=== PATIENT | female | born 1950 | race Caucasian/White ===

== ENCOUNTER → 2022-05-15 | Outpatient (CLI) | payer MEDICARE ==
[2022-05-15 09:18] VITALS: BP 91/62; PULSE 84; RESP 18; TEMP 98.2
--- NOTE | 2022-05-15 09:21 | P.PAINPG ---
PQRS Measure Charge Sheet Comment: HISTORY OF PRESENT ILLNESS: 72 yr old female as a referral from [facility] presents today with severe and chronic LBP secondary to DDD, L5-S1 spondylolisthesis and facet arthropathy for an evaluation. Pt states her pain level is approximately 0/10 in intensity but escalates as high as 8/10 in intensity with standing/walking for 5 min or more or other weight bearing activity. Pain is intermittent, tight in character in the mid to lower aspects of her lumbar spine which has been worsening for the last year. Pain radiates left or right of midline to the paraspinal muscles and denies radiation of pain to the lower extremities. Pain is relieved with medications (Neurontin, Tylenol OTC, Advil OTC), topicals, LESIs the past, physical therapy in February 2021 for 4-5 weeks patient provided no relief, use of a cane and walker for ambulation, sitting and laying supine. PMH: OA, HTN, NIDDM Type II, MDD/ Anxiety PSH: Cholecystectomy, BL Cataract Resection, BL Feet Surgery, Bladder Suspension SH: No tobacco use, Occasional ETOH use, No illicit drug use. Grandmother to twins. FH: Non contributory All: NKDA Meds: See list REVIEW OF ORGAN SYSTEMS: CONSTITUTIONAL: No fevers or chills. No recent weight loss. NEUROLOGICAL: + numbness and tingling along the distal extremities. No seizure disorders or headaches. MUSCULOSKELETAL: + pain PSYCHIATRIC: Denies current depression or suicidal thoughts. Physical Examinations : Constitutional : Cooperative , not in acute distress . Neurologic : Cranial nerve II to XII intact. No focal neurological deficits. Psychiatric : alert & oriented x 3. Matching mood & appropriate affect. Judgment & insight intact. Musculoskeletal : Cervical Spine Motor strength in the deltoid and biceps: Normal right side. Normal Left side Motor strength biceps and the wrist extensors: Normal right side . Normal left side Motor strength in the triceps muscle: Normal right side. Normal left side Deep tendon reflexes: Normal at the biceps. Normal at Brachioradialis. Normal at triceps Vertebral body tenderness to deep palpation over Cervical facet loading test: positive bilaterally Spurling test: positive bilaterally Neck distraction test: positive bilaterally Jae sign: positive bilaterally Lumbar spine Motor strength lower extremities ,thigh and legs 5/5 Right side , 5/5 Left side Deep tendon reflexes : Normal Knee Jerk. Normal Ankle Jerk Vertebral body tenderness over L4, L5 w paraspinal TTP Lumbar facet Loading Test: positive Right / positive Left Range of motion of the lumbar spine Flexion 30 degrees, extension 10 degrees Straight Leg Raise test: Left/ Right positive at degree Nicole test: positive right / positive left. Severe tenderness over the Sacroiliac joint on the Right / Left sides Gaenslen test: positive bilaterally Seated flexion test: positive bilaterally. Sacral spine : Severe tenderness over the Sacroiliac joint: right side / left side Range of motion: Flexion of the lumbar spine <60 degrees Range of motion: Extension of the lumbar spine <20 degrees Gaenslen's Test positive Manan's Test positive Nicole test: positive right side / left side Thigh Thrust Test Sacral Thrust Test Imaging: MRI without contrast of the lumbar spine from 04/03/22 reviewed Assessment/ Plan : Lumbar DDD, lumbar spondylolisthesis Recommendation of FERNANDA L4-L5. May need a series of injections, up to 3 within a 6 mo period, for optimal pain relief. Risks, benefits of procedure discussed and patient verbalized understanding. Admits to aspirin or anti- coagulant use or medical history of diabetes. Protocol for discontinuation/ continuation of medications rolando procedure discussed. All questions answered. I have spent greater than 30 minutes on patient care today. Dr Wilkins was available by phone for the evaluation of this patient. The time was used to review the medical records including relevant urine studies and Prescription history (MAPs), review of the available imaging, evaluation and examination of the patient, coordination of care with the medical staff and if applicable referring physicians, as well as creation of the medical record Controlled Substance Measures - Controlled Substance Measures Is patient prescribed a controlled substance at discharge?: No
== END | disposition home or self-care (01) ==
LOC: PNWHC3 08:27
PROVIDERS: ATTEND Specialist
DX: M43.16 Spondylolisthesis, lumbar region (principal); M51.36 Other intervertebral disc degeneration, lumbar region
CPT/HCPCS: 99211

== ENCOUNTER 2022-06-25 08:09 | Day surgery (SDC) | payer MEDICARE ==
[2022-06-24 10:06] VITALS: BMI 29.6
[~2022-06-25 08:09] MED LIST: LACTATED RINGERS 1,000 ML IV SCH
[2022-06-25 08:49] LABS: Glucose,Whole Blood 127 mg/dL (70-110)
[2022-06-25] MEDS ORDERED: methylPREDNISolone ACETATE 40 MG/ML 1 ML VIAL ONE (08:51)
[2022-06-25] MEDS ORDERED: IOPAMIDOL M200 10 ML VIAL ONE (08:51)
[2022-06-25 08:54] VITALS: RESP 16
--- NOTE | 2022-06-25 09:02 | P.PCN ---
Date of Procedure: 06/25/22 Procedure(s) Performed: L4-L5 epidural steroid injection Description of Procedure: PREOPERATIVE DIAGNOSIS: lumbar radiculopathy POSTOPERATIVE DIAGNOSIS: Lumbar radiculopathy PROCEDURE 1. Lumbar epidural steroid injection under fluoroscopic guidance at the L4-L5 level. 2. Lumbar epidurogram. Imaging: Fluoroscopy was used, images where saved to the medical record ANESTHESIA: Medication Administered by: None Sedation Type: Local only Sedation Supervision start time: Sedation Supervision end time: EBL: Minimal PROCEDURE INDICATION: The patient with low back pain and radiculitis symptoms unresponsive to conservative treatment. Fluoroscopy was used to optimize visualization of the needle placement and to maximize safety. PROCEDURE DESCRIPTION / TECHNIQUE: The patient was seen and identified in the preoperative area. Risks, benefits, complications including but not limited to infections ,bleeding ,allergic reacti on to the medications, nerve damage and incomplete pain relief , as well as alternatives to the procedure were discussed with the patient. The patient agreed to proceed with the procedure and signed the consent. IV was started, and vital signs were stable. Patient was taken to the OR and time out was completed. The patient was placed in the prone position on procedure table and a pillow was placed under the abdomen to reduce lumbar lordosis. The lumbosacral area was prepped and draped in the usual sterile fashion. Vitals were closely monitored during the procedure. Using anterior-posterior fluoroscopy, the L4-L5 interlaminar space was identified and the skin over this site was marked and then infiltrated with 1% lidocaine subcutaneously. Subsequently, a 20-gauge Tuohy epidural needle was inserted and advanced toward the epidural space using the Loss of resistance technique and guided by AP and lateral fluoroscopy. The correct needle position in the epidural space was verified with the injection of 1 mL of Omnipaque 180 contrast to observe an acceptable epidurogram, after negative aspiration for blood and CSF and in the absence of paresthesias. Again after negative aspiration, a 3 ml mixture containing 40mg of depomedrol and 2 ml of preservative free Normal Saline was injected and a washout of epidurogram was seen. Needle was withdrawn intact, skin was cleansed, and bandages were applied. COMPLICATIONS: None DISPOSITION / PLANS: The patient was placed in a supine position and transferred to the recovery area in a stable condition for observation. There was no evidence of lower extremity motor or sensory deficit after the procedure. Patient was discharged from the recovery room after meeting discharge criteria. Home discharge instructions were given to the patient by the staff. The patient was reexamined prior to discharge. The patient will follow up as directed.
--- NOTE | 2022-06-25 09:20 | FL ---
EXAMINATION TYPE: FL guided pain mgmt statistic DATE OF EXAM: 06/25/2022 HISTORY: Fluoroscopy time 6 seconds of fluoroscopy provided. IMPRESSION: 1. Fluoroscopy time.
[2022-06-25 09:33] VITALS: BP 111/68; PULSE 62
== END 2022-06-25 09:47 | disposition home or self-care (01) ==
LOC: ORPAIN 08:09
PROVIDERS: ATTEND Hospitalist
DX: M54.16 Radiculopathy, lumbar region (principal); Z88.1 Allergy status to other antibiotic agents
CPT/HCPCS: 62323; J1030; Q9966

== ENCOUNTER → 2022-07-17 | Outpatient (CLI) | payer MEDICARE ==
[2022-07-17 08:18] VITALS: BP 98/64; PULSE 75; RESP 18; TEMP 98.4
--- NOTE | 2022-07-17 15:01 | P.PAINPG ---
PQRS Measure Charge Sheet Comment: A 72 yr old female with a history of severe and chronic low back pain secondary to lumbar degenerative disc diseases and lumbar spondylosis with facet arthropathy presents today for evaluation s/p RAFAEL L4-L5. Pt states she experienced 50% pain relief x 2 wks s/p procedure. Pain level is currently at 5/10 in intensity, constant, spasm in character w shooting towards the hips BL. Pain is provoked by standing/ walking, otherwise it is a 0/10 in intensity. Pain is alleviated with PT x 4 wks in Nov 2021, medications (Ibuprofen), capsacin topical, use of a walker for ambulation, sitting, repositioning and rest. Interventional pain procedures completed include RAFAEL L4-L5 Patient is currently on Ibuprofen prn Patient denies any side effects of the medication(s), denies excessive drowsiness or sleepiness, denies suicidal ideation and reports that the current pain medication is helping to control the pain and improve activities of daily living. Patient denies any motor or sensory deficits. Patient denies any fever or night sweats, denies any change in the bowel movements or urination. Physical Examination: -Constitutional: Cooperative. Not in acute distress . - Neurologic: Cranial nerve II to XII intact. No focal neurological deficits. - Psychatric: Alert & oriented x 3. Matching mood & appropriate affect. Judgment and insight intact. - Musculoskeletal: Cervical spine: Muscle bulk/ tone/ strength in the bilateral upper extremities normal Vertebral body tenderness to palpation over Spurling test positive Distraction test positive Facet loading test positive Thoracic spine Muscle bulk / tone/ strength in the bilateral paraspinal muscles normal Vertebral body tender to palpation over Facet loading test positive Lumbar spine: Motor bulk/ tone/ strength lower extremities , thigh and legs : 5/5 Deep tendon reflexes : Normal Knee Jerk. Normal Ankle Jerk . Vertebral body tenderness to palpation over L5 Lumbar Facet Loading Test positive Straight Leg Raise: positive at 30 degrees right side/ left side Gaenslen's Test positive Sacral spine : Severe tenderness over the Sacroiliac joint: right side / left side Range of motion: Flexion of the lumbar spine <60 degrees Range of motion: Extension of the lumbar spine <20 degrees Gaenslen's Test positive Manan's Test positive Nicole test: positive right side / left side Thigh Thrust Test Sacral Thrust Test Assessment and plan: Chronic low back pain secondary to lumbar degenerative disc disease , lumbar spondylosis with facet arthropathy without myelopathy Recommendation of RAFAEL L5-S1. May need a series of injections, up to 3 within a 6 mo period, for optimal pain relief. Risks, benefits of procedure discussed and pt verbalized understanding. Denies anticoagulant use or medical history of diabetes. All patient questions answered MAPS reviewed and it was appropriate. I have spent less than 30 minutes on patient care today. Dr Wilkins was available by phone for the evaluation of this patient. The time was used to review the medical records including relevant urine studies and Prescription history (MAPs), review of the available imaging, evaluation and examination of the patient, coordination of care with the medical staff and if applicable referring physicians, as well as creation of the medical record PQRS Narrative: Hx Alcohol Use (MH) Yes: SOCIAL Home Medications: Ambulatory Orders Albuterol Inhaler [Ventolin Hfa Inhaler] 1 - 2 puff INHALATION RT-Q6H PRN 06/24/22 Aspirin 81 mg PO DAILY 06/24/22 Atenolol/Chlorthalidone [Atenolol-Chlorthalidone 100-25] 1 each PO DAILY 06/24/22 Atorvastatin [Lipitor] 10 mg PO HS 06/24/22 Cholecalciferol [Vitamin D3 (25 Mcg = 1000 Iu)] 125 mcg PO DAILY 06/24/22 Dulaglutide [Trulicity] 0.75 mg SQ MO 06/24/22 FLUoxetine HCL 40 mg PO DAILY 06/24/22 Gabapentin [Neurontin] 100 mg PO BID 06/24/22 LORazepam [Lorazepam] 0.5 mg PO DAILY PRN 06/24/22 Levothyroxine Sodium [Synthroid] 75 mcg PO DAILY 06/24/22 Losartan Potassium [Cozaar] 100 mg PO DAILY 06/24/22 Page-3/Dha/Epa/Fish Oil [Fish Oil 1,000 mg Softgel] 1 each PO DAILY 06/24/22 Zinc 50 mg PO DAILY 06/24/22 Zolpidem [Ambien] 5 mg PO HS PRN 06/24/22 Controlled Substance Measures - Controlled Substance Measures Is patient prescribed a controlled substance at discharge?: No
== END | disposition home or self-care (01) ==
LOC: PNWHC3 07:40
PROVIDERS: ATTEND Specialist
DX: M51.36 Other intervertebral disc degeneration, lumbar region (principal); M47.896 Other spondylosis, lumbar region; M46.56 Other infective spondylopathies, lumbar region
CPT/HCPCS: 99211

== ENCOUNTER 2022-08-20 07:11 | Day surgery (SDC) | payer MEDICARE ==
[~2022-08-20 07:11] MED LIST changes: +LIDOCAINE 1% (10MG/ML) FOR IV START INTRADERMA PRN
[2022-08-20 07:39] VITALS: TEMP 97
[2022-08-20 07:46] LABS: Glucose,Whole Blood 128 mg/dL (70-110)
[2022-08-20] MEDS ORDERED: methylPREDNISolone ACETATE 40 MG/ML 1 ML VIAL ONE (08:18)
[2022-08-20] MEDS ORDERED: IOPAMIDOL M200 10 ML VIAL ONE (08:18)
--- NOTE | 2022-08-20 08:29 | P.PCN ---
Date of Procedure: 08/20/22 Procedure(s) Performed: PREOPERATIVE DIAGNOSIS: 1- Lumbar Degenerative Disc Diseases 2-Lumbar spondylosis with Facet arthropathy without myelopathy. 3-lumbar radiculopathy POSTOPERATIVE DIAGNOSIS: Same as preop diagnosis. PROCEDURE 1. Lumbar epidural steroid injection under fluoroscopic guidance at the L5-S1 level. (Fluoroscopy imaging was available in radiology department) 2. Lumbar epidurogram. ANESTHESIA: Local infiltration with lidocaine 1% 3 mL EBL: Minimal PROCEDURE INDICATION: The patient with low back pain and radiculitis symptoms unresponsive to conservative treatment. Fluoroscopy was used to optimize visualization of the needle placement and to maximize safety. PROCEDURE DESCRIPTION / TECHNIQUE: The patient was seen and identified in the preoperative area. Risks, benefits, complications including but not limited to infections ,bleeding ,allergic reaction to the medications ,nerve damage and not complete pain releife , and alternatives were discussed with the patient. The patient agreed to proceed with the procedure and signed the consent. IV was started, and vital signs were stable. Patient was taken to the OR and time out was completed. The patient was placed in the prone position on procedure table and a pillow was placed under the abdomen to reduce lumbar lordosis. The lumbosacral area was prepped and draped in the usual sterile fashion.ere closely monitored during the procedure.. Vital signs was monitered during the entire procedure. Using anterior-posterior fluoroscopy, the L5-S1 interlaminar space was identified and the skin over this site was marked and then infiltrated with 1% lidocaine subcutaneously. Subsequently, a 20-gauge Tuohy epidural needle was inserted and advanced toward the epidural space using the ``Loss of resistance technique and guided by AP and lateral fluoroscopy. The correct needle position in the epidural space was verified with the injection of 2 mL of the water soluble contrast dye Isovue 200 contrast and observing an excellent epidurogram with the epidural spread of the dye, after negative aspiration for blood and CSF and in the absence of paresthesias. Again after negative aspiration, a 6 ml mixture containing 40 mg of Depo-medrol ( Preservetive Free ), and 2 ml of preservative free Normal Saline, and 2 ml of preservative free lidocaine 1% solution was injected and a washout of epidurogram was seen. Needle was withdrawn intact, skin was cleansed, and bandages were applied. COMPLICATIONS: None DISPOSITION / PLANS: The patient was placed in a supine position and transferred to the recovery area in a stable condition for observation. There was no evidence of lower extremity motor or sensory deficit after the procedure. Patient was discharged from the recovery room after meeting discharge criteria. Home discharge instructions were given to the patient by the staff. The patient was reexamined prior to discharge. The patient will schedule a follow up in the clinic in 2-4 weeks.
[2022-08-20 08:41] VITALS: RESP 16
[2022-08-20 08:46] VITALS: BP 136/79; PULSE 71
--- NOTE | 2022-08-20 10:19 | FL ---
EXAMINATION TYPE: FL guided pain mgmt statistic DATE OF EXAM: 08/20/2022 HISTORY: Fluoroscopy time 1 seconds of fluoroscopy provided. IMPRESSION: 1. Fluoroscopy time.
== END 2022-08-20 08:49 | disposition home or self-care (01) ==
LOC: ORPAIN 07:11
PROVIDERS: ATTEND Specialist
DX: M51.36 Other intervertebral disc degeneration, lumbar region (principal); M47.26 Other spondylosis with radiculopathy, lumbar region; Z88.1 Allergy status to other antibiotic agents
CPT/HCPCS: 62323; J1030; Q9966

== ENCOUNTER → 2022-09-19 | Outpatient (CLI) | payer MEDICARE ==
[2022-09-19 10:13] VITALS: BP 134/77; PULSE 74; RESP 17; TEMP 98.1
--- NOTE | 2022-09-19 15:04 | P.PAINPG ---
PQRS Measure Charge Sheet Comment: A 72 yr old female with a history of severe and chronic low back pain secondary to lumbar degenerative disc diseases and lumbar spondylosis with facet arthropathy without myelopathy presents today for evaluation s/p RAFAEL L5-S1. Pt states she experienced 80% pain relief x 9 days s/p procedure. Pt had a synco pal episode w collapse at day 9 and developed LBP since her fall. She is following up w her PCP and has an EKG scheduled. Pain level is currently at 5/10 in intensity, constant, localized in the L lower lumbar spine, dull/ achy in character w shooting towards the BL feet. Pain is provoked by any activity, standing/ walking for periods of 15 min or more. Pain is alleviated with medications (Tylenol), topicals, PT x 8 wks in February 2022, massage therapy integrated w PT, home exercise regimen as tolerated, ues of a walker for ambulation, repositioning, sitting and rest. Interventional pain procedures completed include RAFAEL L5-S1 Patient is currently on Tylenol OTC Patient denies any side effects of the medication(s), denies excessive drowsiness or sleepiness, denies suicidal ideation and reports that the current pain medication is helping to control the pain and improve activities of daily living. Patient denies any motor or sensory deficits. Patient denies any fever or night sweats, denies any change in the bowel movements or urination. Physical Examination: -Constitutional: Cooperative. Not in acute distress . - Neurologic: Cranial nerve II to XII intact. No focal neurological defic its. - Psychatric: Alert & oriented x 3. Matching mood & appropriate affect. Judgment and insight intact. - Musculoskeletal: Cervical spine: Muscle bulk/ tone/ strength in the bilateral upper extremities normal Vertebral body tenderness to palpation over Spurling test positive Distraction test positive Facet loading test positive Thoracic spine Muscle bulk / tone/ strength in the bilateral paraspinal muscles normal Vertebral body tender to palpation over Facet loading test positive Lumbar spine: Motor bulk/ tone/ strength lower extremities , thigh and legs : 5/5 Deep tendon reflexes : Normal Knee Jerk. Normal Ankle Jerk . Vertebral body tenderness to palpation over Lumbar Facet Loading Test positive Straight Leg Raise: positive at 30 degrees right side/ left side Gaenslen's Test positive Sacral spine : Severe tenderness over the Sacroiliac joint: right side / left side Range of motion: Flexion of the lumbar spine <60 degrees Range of motion: Extension of the lumbar spine <20 degrees Gaenslen's Test positive Manan's Test positive Nicole test: positive right side / left side Thigh Thrust Test Sacral Thrust Test Assessment and plan: Chronic low back pain secondary to lumbar degenerative disc disease , lumbar spondylosis with facet arthropathy without myelopathy Exhibited sufficient and substantial pain relief until she had a syncopal episode accompanied w collapse. She will follow up w her PCP and other specialists as needed for her syncopal episode w collapse and may return to our clinic on an as needed basis. Risks, benefits of procedure discussed and pt verbalized understanding. Denies anticoagulant use or medical history of diabetes. All patient questions answered I have spent less than 30 minutes on patient care today. Dr Wilkins was available by phone for the evaluation of this patient. The time was used to review the medical records including relevant urine studies and Prescription history (MAPs), review of the available imaging, evaluation and examination of the patient, coordination of care with the medical staff and if applicable referring physicians, as well as creation of the medical record PQRS Narrative: Hx Alcohol Use (MH) Yes: SOCIAL Home Medications: Ambulatory Orders Albuterol Inhaler [Ventolin Hfa Inhaler] 1 - 2 puff INHALATION RT-Q6H PRN 06/24/22 Atenolol/Chlorthalidone [Atenolol-Chlorthalidone 100-25] 1 each PO DAILY 06/24/22 Atorvastatin [Lipitor] 10 mg PO HS 06/24/22 Cholecalciferol [Vitamin D3 (25 Mcg = 1000 Iu)] 125 mcg PO DAILY 06/24/22 Dulaglutide [Trulicity] 0.75 mg SQ MO 06/24/22 FLUoxetine HCL 40 mg PO DAILY 06/24/22 Gabapentin [Neurontin] 100 mg PO BID 06/24/22 LORazepam [Lorazepam] 0.5 mg PO DAILY PRN 06/24/22 Levothyroxine Sodium [Synthroid] 75 mcg PO DAILY 06/24/22 Losartan Potassium [Cozaar] 100 mg PO DAILY 06/24/22 [place]-3/Dha/Epa/Fish Oil [Fish Oil 1,000 mg Softgel] 1 each PO DAILY 06/24/22 Zinc 50 mg PO DAILY 06/24/22 Zolpidem [Ambien] 5 mg PO HS PRN 06/24/22 Controlled Substance Measures - Controlled Substance Measures Is patient prescribed a controlled substance at discharge?: No
== END | disposition home or self-care (01) ==
LOC: PNWHC3 09:09
PROVIDERS: ATTEND Specialist
DX: M47.896 Other spondylosis, lumbar region (principal); M51.36 Other intervertebral disc degeneration, lumbar region
CPT/HCPCS: 99211